=== PATIENT | female | born 1985 | race African-American/Black ===

== ENCOUNTER 2019-03-04 15:11 | Emergency (ER) | payer OTHER | END 2019-03-04 17:58 | disposition home or self-care (01) | LOC: JER 15:11 ==

== ENCOUNTER 2019-03-27 06:18 | Day surgery (SDC) | payer OTHER ==
[2019-03-26 14:41] VITALS: BMI 22.3
[2019-03-27] MEDS ORDERED: PROPOFOL 20 ML ONE (06:59)
[2019-03-27] MEDS ORDERED: MIDAZOLAM HCL 2 MG/2 ML SINGLE DOSE VIAL ONE (07:00)
[2019-03-27] MEDS ORDERED: LIDOCAINE HCL/PF 2% SDV 5ML VIAL ONE (07:00)
[2019-03-27] MEDS ORDERED: SUCCINYLCHOLINE CHLORIDE 200 MG/10 ML SYRINGE ONE (07:00)
[2019-03-27] MEDS ORDERED: ONDANSETRON 4 MG/2 ML VIAL IVPUSH PRN (07:07)
[2019-03-27] MEDS ORDERED: oxyCODONE HCL 5 MG TABLET PO PRN ×2 (07:07)
[2019-03-27] MEDS ORDERED: DESFLURANE GAS 240 ML BOTTLE IH ONE (07:08)
[2019-03-27] MEDS ORDERED: LACTATED RINGERS SOLUTION 1,000 ML IV SCH (07:15)
[2019-03-27] MEDS ORDERED: ACETAMINOPHEN 325 MG TABLET (FP) PO PRN (07:39)
[2019-03-27] MEDS ORDERED: IBUPROFEN 400 MG TABLET (FP) PO PRN (07:39)
--- NOTE | 2019-03-27 07:39 | HP ---
Admitting History and Physical - Admission History of Present Illness: 33 yo dx with missed at 8 wks desires surgical management Hx/o MAB x 2 in past History Source: Patient Limitations to Obtaining History: No Limitations - Past Medical History Cardiovascular: No: HTN Gastrointestinal: Yes: Peptic Ulcer Disease ...LMP: 01/22/19 ...: 4 ...Para: 1 Heme/Onc: No: Anemia - Past Surgical History Additional Past Surgical History: D&C for MAB - Smoking History Smoking history: Never smoked Have you smoked in the past 12 months: No - Alcohol/Substance Use Hx Alcohol Use: No - Social History History of Recent Travel: No Home Medications - Allergies Allergies/Adverse Reactions: Allergies Allergy/AdvReac Type Severity Reaction Status Date / Time No Known Allergies Allergy Verified 03/27/19 06:43 - Home Medications Home Medications: Ambulatory Orders Doxycycline Monohydrate [Monodox] 100 mg PO BID 3 Days #6 capsule 03/27/19 Ibuprofen [Motrin -] 600 mg PO QID #28 tablet 03/27/19 Methylergonovine Maleate [Methergine -] 0.2 mg PO TID #6 tablet MDD 3 03/27/19 Family Disease History - Family Disease History Family History: Denies Review of Systems - Review of Systems Constitutional: reports: No Symptoms Cardiovascular: reports: No Symptoms Respiratory: reports: No Symptoms Gastrointestinal: reports: No Symptoms Genitourinary: reports: No Symptoms Neurological: reports: No Symptoms Endocrine: reports: No Symptoms Hematology/Lymphatic: reports: No Symptoms Physical Examination Vital Signs: Vital Signs Temperature 98.4 F 03/27/19 06:35 Pulse Rate 76 03/27/19 06:35 Respiratory Rate 16 03/27/19 06:35 Blood Pressure 101/60 03/27/19 06:35 O2 Sat by Pulse Oximetry (%) 99 03/27/19 06:36 Constitutional: Yes: Well Nourished, No Distress, Calm Cardiovascular: Yes: Regular Rate and Rhythm Respiratory: Yes: Regular, CTA Bilaterally Gastrointestinal: Yes: Normal Bowel Sounds, Soft Peripheral Pulses WNL: No Psychiatric: Yes: Alert, Oriented Labs: Blood type: A positive Assessment/Plan 33 yo with mab 1. consents reviewed and signed 2. SCDs for dvt prophylaxis 3. doxycycline divisional storekeeper to OR; plan for 3 day course Postop 4. Rx uterotonic and NSAID for pain control 5. Will proceed to OR
[2019-03-27] MEDS ORDERED: DOXYCYCLINE INJECTION 100 MG in DEXTROSE 5%-WATER - 100 ML IVPB ONE (07:40)
[2019-03-27] MEDS ORDERED: DOXYCYCLINE HYCLATE 100 MG VIAL IVPB ONE (07:59)
[2019-03-27] MEDS ORDERED: DEXAMETHASONE SOD PHOSPHATE 4 MG/1 ML VIAL ONE (08:05)
[2019-03-27] MEDS ORDERED: KETOROLAC TROMETHAMINE 30 MG/1 ML VIAL ONE (08:19)
--- NOTE | 2019-03-27 08:44 | OP ---
Operative Note - Note: Operative Date: 03/27/19 Pre-Operative Diagnosis: missed 8 wks Operation: suction dilation and curettage Findings: ultrasound with gestational sac, pole, no FH thin endometrial stripe at the end of procedure; Post-Operative Diagnosis: Same as Pre-op Surgeon: Rosey Myrick Anesthesiologist/DIRECT RESPONSE CONSULTANT: Evi Taylor Anesthesia: General Estimated Blood Loss (mls): 100 Fluid Volume Replaced (mls): 750 Operative Report Dictated: Yes
[2019-03-27 11:39] VITALS: BP 104/51; PULSE 78; TEMP 98
--- NOTE | 2019-03-27 11:43 | OP ---
DATE OF OPERATION: 03/27/2019 PREOPERATIVE DIAGNOSIS: Missed 8 weeks, recurrent loss. POSTOPERATIVE DIAGNOSIS: Missed 8 weeks, recurrent loss. FINDINGS: Ultrasound with a gestational sac, no pole, no FH, and thin endometrial stripe at the end of procedure. SURGEON: Rosey Myrick MD GREENS CUTTER: Evi Taylor CRNA ANESTHESIA: General. ESTIMATED BLOOD LOSS: 100 CC FLUIDS GIVEN: 750 CC INDICATIONS: Patient is a 33-year-old 4, para 1-0-2-1, with a diagnosis of missed 8 weeks. She was counseled regarding medical surgical management. She opted for surgical management. Risks, benefits, alternatives, and complications of procedure were discussed including infection, bleeding, uterine perforation, damage to surrounding organs. She expressed understanding and was brought to the operating room. DESCRIPTION OF PROCEDURE: When anesthesia was found to be adequate, patient was prepped and draped in a normal sterile fashion, placed in dorsal lithotomy position using Angel stirrups. A weighted speculum was placed in the patients vagina. The anterior lip of the cervix was grasped using an Allis clamp. The cervix was gently dilated to accommodate a size 23 Portuguese dilator. An 8-mm suction curette was placed in the uterine cavity. Bedside ultrasound revealed intrauterine placement. Suction was applied to an operative pressure of approximately 70 mmHg. Gentle sharp curetting was performed. Approximately 4 passes were performed with good evacuation of products. Thin endometrial stripe was noted at the end of procedure. Gentle sharp curetting was performed and no additional tissue was noted. All specimens were sent to Pathology fresh for chromosome analysis. All instruments were removed from the patients vagina. Doxycycline given preoperatively and Methergine given intraoperatively. The patient tolerated the procedure well. Estimated blood loss was 100 mL. Patient was brought to the recovery room in stable condition. Tabitha [id number] MTDD
--- NOTE | 2019-03-30 17:09 | PATH ---
Surgical Pathology Report Patient Name: JEFFRY ZAMORA [facility]. Rec. #: [id number] /Age/Gender: 1985 (Age: 33) / F Account: [id number] Location: [facility] Taken: 03/27/2019 Received: 03/27/2019 Reported: 03/30/2019 Physicians: Rosey Myrick Specimen(s) Received PRODUCTS OF CONCEPTION Clinical History Missed , recurrent loss Final Diagnosis PRODUCTS OF CONCEPTION, SUCTION DILATION AND CURETTAGE: IMMATURE CHORIONIC VILLI, DECIDUA, AND GESTATIONAL ENDOMETRIUM CONSISTENT WITH PRODUCTS OF CONCEPTION. CHROMOSOMAL STUDIES ARE PENDING AND WILL BE REPORTED SEPARATELY AN ADDENDUM. Electronically Signed Liliana Prater M.D. Gross Description Received fresh in 2 containers labeled "products of conception," is a 15.0 x 12.5 x 1.2 cm aggregate of red-lima tissue fragments. Villous tissue is identified. No somatic tissue is identified. A traffic representative portion is placed in RPMI solution and sent for chromosomal studies. An additional traffic representative portion is submitted in one cassette. /03/27/2019 [facility]03/27/2019
== END 2019-03-27 11:42 | disposition home or self-care (01) ==
LOC: JASU-SURG 06:18
PROVIDERS: ATTEND Obstetrics & Gynecology
PROC: 10D17ZZ Extraction of Products of Conception, Retained, Via Natural or Artificial Opening (ICD-10-PCS; principal; 2019-03-27 07:30)
DX: O02.1 Missed abortion (principal)
CPT/HCPCS: 88305-TC; 94760